=== PATIENT | male | born 1945 | race African-American/Black ===

== ENCOUNTER 2016-04-13 10:18 | Inpatient (IN) | payer MEDICARE, OTHER ==
[2016-04-12 19:00] VITALS: BP 147/95
[~2016-04-13] VITALS: Ht 179.1 cm; Wt 125.8 kg
[~2016-04-13 10:18] MED LIST: AMLO10TA2 PO; CARV6.252 PO; FURO40TA4 PO; GLIM4TAB2 PO; INSU100I17 SQ; INSU100V8 SQ; METF500T4 PO; OXYC10TA PO; POTA15TA2 PO; PROAIR HFA8.5 GM IH; TRAM50TA PO
[2016-04-13] MEDS ORDERED: NICOTINE 21MG PATCH. TD ONE (10:45)
[2016-04-13 11:06] LABS: BASO # 0.1 x10^3/uL (0.0-0.2); BASO % 1 % (0-3); EOS % 1 % (0-3); HEMATOCRIT 41.3 % (39.0-53.0); LYMPH # 2.1 x10^3/uL (1.0-4.8); LYMPH % 29 % (24-48); MEAN CORPUSCULAR HEMOGLOBIN 25 pg (25-35); MEAN CORPUSCULAR HGB CONC 32 g/dL (31-37); MEAN CORPUSCULAR VOLUME 79 fL (79-100); MONO % 10 % (0-9); NEUT % 59 % (31-73); PLATELET COUNT 222 x10^3/uL (140-400); RED BLOOD COUNT 5.25 x10^6/uL (4.30-5.70); RED CELL DISTRIBUTION WIDTH 14.9 % (11.5-14.5); WHITE BLOOD COUNT 7.1 x10^3/uL (4.0-11.0)
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
[2016-04-13 11:21] LABS: CALCIUM 8.5 mg/dL (8.5-10.1); CREATININE 0.8 mg/dL (0.7-1.3); GFR 116.3; POTASSIUM 4.4 mmol/L (3.5-5.1)
[2016-04-13 11:26] LABS: ALBUMIN 3.5 g/dL (3.4-5.0); ALBUMIN/GLOBULIN RATIO 0.9 (1.0-1.7); TOTAL BILIRUBIN 0.4 mg/dL (0.2-1.0); TOTAL PROTEIN 7.2 g/dL (6.4-8.2)
--- NOTE | 2016-04-13 11:29 | EKG ---
[facility] [address] [place] [address] Test Date: 2016-04-13 Test Time: 10:20:33 Pat Name: YUNG LEDESMA Department: Room: Gender: M District Associate Judge: : 1945 Requested By: ERICA ALVAREZ Order Number: [id number] Reading MD: Chandrika Amaral Measurements Intervals [place] Rate: 62 P: 48 SD: 166 QRS: 8 QRSD: 78 T: 7 QT: 378 QTc: 386 Interpretive Statements SINUS RHYTHM VENTRICULAR PREMATURE COMPLEX(ES) T ABNORMALITY IN ANTEROLATERAL LEADS ABNORMAL ECG RI6.01 No previous ECG available for comparison Electronically Signed On 04-17-2016 15:22:00 INTEGRATION ENGINEER by Chandrika Amaral
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
[2016-04-13] MEDS ORDERED: ACETAMINOPHEN 325 MG TABLET. PO PRN (12:00)
[2016-04-13] MEDS ORDERED: FUROSEMIDE 40 MG/4 ML VIAL IVP ONE ×2 (12:00→15:00)
[2016-04-13] MEDS ORDERED: DEXTROSE 50% 25 GM / 50ML DISP.SYRIN. IV PRN (13:30)
[2016-04-13] MEDS ORDERED: ASPI81TA2 PO (13:54)
[2016-04-13] MEDS ORDERED: ALBUTEROL SULFATE 2.5 MG/3 ML NEBU. NEB PRN (14:15)
--- NOTE | 2016-04-13 15:03 | PDOC2 ---
TERRI BARONE MELT HELPER 04/13/16 1503: CARDIAC CONSULT DATE OF CONSULT Date of Consult DATE: 04/13/16 TIME: 14:43 REASON FOR CONSULT Reason for Consult: CHF REFERRING PHYSICIAN Referring Physician: Dr. Gill SOURCE Source: Chart review, Patient HISTORY OF PRESENT ILLNESS HISTORY OF PRESENT ILLNESS This is a 70 yo male, with a history of CHF, and CAD s/p PCI/stenting, HTN, and HLP, who presented with complaints of shortness of breath. Patient is somewhat of a poor historian. Patient reports SOA has been ongoing for the last couple of years but has been significantly worse the last couple of days. Reports ongoing orthopnea over the last couple of weeks. Denies LE edema, CP, palpitations, dizziness, diaphoresis, or n/v. No recent illness or fevers. Patient reports having AR and undergoing cardiac cath approximately 8 years ago at (he thinks). Patient does reports having "stents" placed in his heart at that time. No recent cardiac workup or cardiology followup, although he has been to see one as outpatient "awhile ago." Reports compliance with medications. PAST MEDICAL HISTORY Cardiovascular: CAD (s/p PCI/stenting), CHF, HTN, AR, Hyperlipidemia Pulmonary: Asthma, Other (DEMAR with CPAP- does not use) CENTRAL NERVOUS SYSTEM: CVA, Periperal neuropathy GI: No pertinent hx Heme/Onc: No pertinent hx Hepatobiliary: No pertinent hx Psych: No pertinent hx Musculoskeletal: Osteoarthritis Rheumatologic: No pertinent hx ENT: No pertinent hx Renal/: No pertinent hx Endocrine: Diabetes Dermatology: No pertinent hx PAST SURGICAL HISTORY Past Surgical History: Hernia Repair, Total knee replacement (bilateral) FAMILY HISTORY Family History: Diabetes, Hypertension SOCIAL HISTORY Smoke: Quit (2 days ago) ALCOHOL: occassional Drugs: None Lives: Alone CURRENT MEDICATIONS CURRENT MEDICATIONS Current Medications Medications (Trade) Dose Ordered Sig/Xuan Route PRN Reason Start Time Stop Time Status Last Admin Dose Admin Nicotine (Nicoderm Cq 21mg) 1 patch 1X ONCE TD 04/13/16 10:45 04/13/16 10:48 DC 04/13/16 11:02 Furosemide (Lasix) 40 mg 1X ONCE IVP 04/13/16 12:00 04/13/16 12:01 DC 04/13/16 12:23 ALLERGIES ALLERGIES: Coded Allergies: WILLIAM Inhibitors (Verified Allergy, Intermediate, swelling, 04/13/16) ROS Review of System 14 point ROS conducted with pertinent positives noted above in HPI PHYSICAL EXAM General: Alert, Oriented X3, Cooperative, No acute distress HEENT: Atraumatic, Mucous membr. moist/pink Lungs: Clear to auscultation, Normal air movement Heart: Regular rate, Normal S1, Normal S2, Other (2/6 systolic murmur ) Abdomen: Soft, Other (obese ) Extremities: No cyanosis, No edema, Normal pulses Skin: No breakdown, No significant lesion Neuro: Normal speech, Sensation intact Psych/Mental Status: Mental status NL, Mood NL MUSCULOSKELETAL: Osteoarthritic changes both hands VITALS VITALS Vital Signs Date Time Temp Pulse Resp B/P Pulse Ox O2 Delivery O2 Flow Rate FiO2 04/13/16 13:58 Room Air 04/13/16 13:00 61 18 133/76 98 04/13/16 10:20 97.6 97.6 LABS Lab: Laboratory Tests Test 04/13/16 10:57 White Blood Count 7.1x10^3/uL (4.0-11.0) Red Blood Count 5.25x10^6/uL (4.30-5.70) Hemoglobin 13.0g/dL (13.0-17.5) Hematocrit 41.3% (39.0-53.0) Mean Corpuscular Volume 79fL (79-100) Mean Corpuscular Hemoglobin 25pg (25-35) Mean Corpuscular Hemoglobin Concent 32g/dL (31-37) Red Cell Distribution Width 14.9% (11.5-14.5) Platelet Count 222x10^3/uL (140-400) Neutrophils (%) (Auto) 59% (31-73) Lymphocytes (%) (Auto) 29% (24-48) Monocytes (%) (Auto) 10% (0-9) Eosinophils (%) (Auto) 1% (0-3) Basophils (%) (Auto) 1% (0-3) Neutrophils # (Auto) 4.2x10^3uL (1.8-7.7) Lymphocytes # (Auto) 2.1x10^3/uL (1.0-4.8) Monocytes # (Auto) 0.7x10^3/uL (0.0-1.1) Eosinophils # (Auto) 0.1x10^3/uL (0.0-0.7) Basophils # (Auto) 0.1x10^3/uL (0.0-0.2) Sodium Level 142mmol/L (136-145) Potassium Level 4.4mmol/L (3.5-5.1) Chloride Level 107mmol/L (98-107) Carbon Dioxide Level 25mmol/L (21-32) Anion Gap 10 (6-14) Blood Urea Nitrogen 15mg/dL (8-26) Creatinine 0.8mg/dL (0.7-1.3) Estimated GFR (Cockcroft-Gault) 116.3 BUN/Creatinine Ratio 19 (6-20) Glucose Level 96mg/dL (70-99) Calcium Level 8.5mg/dL (8.5-10.1) Total Bilirubin 0.4mg/dL (0.2-1.0) Aspartate Amino Transf (AST/SGOT) 17U/L (15-37) Alanine Aminotransferase (ALT/SGPT) 26U/L (16-63) Alkaline Phosphatase 71U/L (46-116) Troponin I Quantitative < 0.017ng/mL (0.000-0.055) AS-Pgz-D-Type Natriuretic Peptide 505pg/mL (0-124) Total Protein 7.2g/dL (6.4-8.2) Albumin 3.5g/dL (3.4-5.0) Albumin/Globulin Ratio 0.9 (1.0-1.7) ASSESSMENT/PLAN ASSESSMENT/PLAN 1. Acute on chronic heart failure 2. Coronary artery disease 3. Dyspnea 4. Hypertension 5. Hyperlipidemia 6. DEMAR- not compliant with CPAP 7. Diabetes, II Recommendations Check echo to assess LV function Continue secondary prevention Check lipids, TSH Diuresis with monitoring of renal function Obtain cardiac records from Further recommendations pending diagnostics Problems: DYANA LORD MD 04/13/16 4994: CARDIAC CONSULT ALLERGIES ALLERGIES: Coded Allergies: WILLIAM Inhibitors (Verified Allergy, Intermediate, swelling, 04/13/16) ASSESSMENT/PLAN ASSESSMENT/PLAN 62-year-old male presenting to the hospital with progressive dyspnea. On examination he has soft systolic murmur throughout the precordium. He has mild lower extremity edema. Labs reviewed. Echocardiogram demonstrates severe LV systolic dysfunction. We will await records from but he has not had any ischemic evaluation the last 2 years we will plan for coronary angiography likely on April 14. Problems: TERRI BARONE APRN Apr 13, 2016 15:03 DYANA LORD MD Apr 13, 2016 18:24
--- NOTE | 2016-04-13 15:39 | ACF ---
Admission Forms Criteria HEART FAILURE: COMMON COMPLICATIONS Clinical Indications for Inpatient Care (Place 'X' for any and all applicable criteria): Ongoing inpatient care may be indicated for heart failure with ANY ONE of the following (1)(2)(3)(4)(5): [ ]I. Ongoing need for care for primary condition requiring frequent therapy adjustments because of changes in cardiac function (eg, drug dosage changes for drugs that are renally metabolized) [ ]II. New-onset heart failure [ ]III. Heart failure with decreased urine output not responsive to attempts to optimize volume status [ ]IV. Acute cardiac ischemia causing or associated with failure [X]V. Complications of heart failure, including ANY ONE of the following: [ ]a) Pericardial effusion [ ]b) Symptomatic pleural effusion [ ]c) O2 saturation <90% or PO2 < 60 mm Hg (8.0 kPa) on room air or require baseline supplemental O2 [ ]d) Tachypnea [X]e) Dyspnea [ ]f) Syncope [ ]g) Change in mental status [ ]h) Acute renal insufficiency that is severe (reduction of more than 50% in estimated glomerular filtration rate from baseline) or progressive reduction of more than 25% in estimated glomerular filtration rate from baseline, with creatinine continuing to rise) [ ]i) Hemodynamic instability [ ]j) Anasarca [ ]k) Clinically significant metabolic abnormalities due to heart failure (eg, new-onset metabolic acidosis) Extended stay beyond goal length of stay for primary condition may be needed until ALL of the following are present(1)(3): [ ]a) Stable and effective diuretic regimen established (or patient on stable dialysis regimen if in chronic renal failure) [ ]b) Breathing comfortably at rest [ ]c) Saturation of arterial oxygen greater than 90% or at acceptable baseline [ ]d) Pulmonary edema absent or improved [ ]e) Hemodynamic stability [ ]f) Volume status acceptable on oral medication [ ]g) Peripheral or sacral edema absent or improved [ ]h) Renal function stable and manageable at a lower level of care [ ]i) Complications (eg, pleural effusion) resolved or manageable at a lower level of care [ ]j) Patient or caregiver has received written discharge instructions or educational material addressing activity level, diet, discharge medications, follow-up appointment, weight monitoring, and what to do if symptoms worsen The original [employer] [facility] content created by [employer] has been revised. The portions of the content which have been revised are identified through the use of italic text or in bold, and [facility] has neither reviewed nor approved the modified material.All other unmodified content is copyright [facility]. Please see references footnoted in the original [facility] edition 2016 Admission Criteria Met?: Yes JORGE SIMS Apr 13, 2016 15:39
[2016-04-13 15:54] VITALS: BP 150/90
[2016-04-13] MEDS: INSULIN ASPART 300 UNITS/3 ML INSULN.PEN SQ SCH ×2 (17:00→17:31)
[2016-04-13] MEDS: METFORMIN 500 MG TABLET. PO SCH (17:27)
[2016-04-13] MEDS: CARVEDILOL 6.25 MG TABLET PO SCH (17:27)
--- NOTE | 2016-04-13 18:24 | CARD ---
APPROVED REPORT EXAM: Two-dimensional and M-mode echocardiogram with Doppler and color Doppler. Other Information Quality : GoodHR: 62bpm Rhythm : NSR INDICATION ALBARADO RISK FACTORS Obesity Diabetes 2D DIMENSIONS RVDd3.7 (2.9-3.5cm)Left Atrium(2D)5.0 (1.6-4.0cm) IVSd1.3 (0.7-1.1cm)Aortic Root(2D)3.0 (2.0-3.7cm) LVDd6.3 (3.9-5.9cm)LVOT Diameter2.3 (1.8-2.4cm) PWd1.3 (0.7-1.1cm)LVDs4.5 (2.5-4.0cm) FS (%) 27.9 %SV105.3 ml LVEF(%)53.1 (>50%) Aortic Valve AoV Peak Sridhar.164.4cm/sAoV VTI35.4cm AO Peak GR.10.8mmHgLVOT Peak Sridhar.87.9cm/s AO Mean GR.6mmHgAVA (VMAX)2.21cm2 AI P 1/2 [id number] Mitral Valve MV E Ucaczaab716.0cm/sMV E Peak Gr.7mmHg MV DECEL [id number] A Firrvkqj08.0cm/s MV E Mean Gr.2mmHgE/A Ratio3.6 MV A [id number] Pulmonary Valve PV Peak Mzmfkbub91.1cm/s Tricuspid Valve TR P. Wzjhnczo385kj/sTR Peak Gr.24mmHg LEFT VENTRICLE The left ventricle is normal size. There is mild concentric left ventricular hypertrophy. Left ventri isaias systolic function is moderately impaired. The Ejection Fraction is 30-35%. There is global hypoki nesis of the left ventricle. Tissue Doppler imaging reveals moderate left ventricular diastolic dysfu nction. RIGHT VENTRICLE The right ventricle is mildly dilated. There is normal right ventricular wall thickness. The right ve ntricular systolic function is normal. ATRIA The left atrium size is normal. The right atrium size is normal. The interatrial septum is intact wit h no evidence for an atrial septal defect or patent foramen ovale as noted on 2-D or Doppler imaging. AORTIC VALVE The aortic valve is mildly sclerotic with restricted leaflet motion. Doppler and Color Flow revealed mild to moderate aortic regurgitation. There is no significant aortic valvular stenosis. MITRAL VALVE There is no evidence of mitral valve prolapse. There is no mitral valve stenosis. Doppler and Color F low revealed mild to moderate mitral regurgitation. TRICUSPID VALVE Doppler and Color Flow revealed mild tricuspid regurgitation. The pulmonary artery systolic pressure is estimated at 29 mmHg. There is no pulmonary hypertension. GREAT VESSELS The aortic root is normal in size. The ascending aorta is normal in size. The IVC is normal in size a nd collapses >50% with inspiration. PERICARDIAL EFFUSION There is no evidence of significant pericardial effusion. Critical Notification Critical Value: No <Conclusion> Left ventricle systolic function is moderately impaired. The Ejection Fraction is 30-35%. There is global hypokinesis of the left ventricle. Tissue Doppler imaging reveals moderate left ventricular diastolic dysfunction. Doppler and Color Flow revealed mild to moderate aortic regurgitation. Doppler and Color Flow revealed mild to moderate mitral regurgitation.
[2016-04-13] MEDS: INSULIN DETEMIR 300 UNITS/3 ML INSULN.PEN. SQ SCH (20:33)
[2016-04-13 23:00] VITALS: BP 129/78
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
[2016-04-14 03:00] VITALS: BP 145/85
[2016-04-14] MEDS: INSULIN ASPART 300 UNITS/3 ML INSULN.PEN SQ SCH ×7 (07:30→17:27)
[2016-04-14 07:58] VITALS: BP 136/91
[2016-04-14] MEDS: ASPIRIN 81 MG TAB.CHEW PO SCH (08:44)
[2016-04-14] MEDS: GLIMEPIRIDE 2 MG TABLET PO SCH (08:44)
[2016-04-14] MEDS: CARVEDILOL 6.25 MG TABLET PO SCH ×2 (08:46→17:21)
[2016-04-14] MEDS: METFORMIN 500 MG TABLET. PO SCH ×2 (08:48→17:19)
[2016-04-14] MEDS: POTASSIUM CHLORIDE 10 MEQ TABLET.ER. PO SCH (08:49)
[2016-04-14] MEDS: AMLODIPINE BESYLATE 10 MG TABLET PO SCH (08:51)
[2016-04-14] MEDS: NICOTINE 21MG PATCH. TD SCH (08:52)
[2016-04-14] MEDS: TRAMADOL 50 MG TABLET. PO PRN (08:55)
[2016-04-14] MEDS ORDERED: FUROSEMIDE 40 MG TABLET PO SCH (09:00)
--- NOTE | 2016-04-14 09:34 | PDOC ---
PROGRESS NOTES Chief Complaint Chief Complaint 1. Acute on chronic systolic and diastolic heart failure 2. SOA, [place] 3. Chronic Obstructive Pulmonary Disease 4. Hypertension 5. DM2 History of Present Illness History of Present Illness Patient awake, alert, and oriented when seen this morning for AM evaluation. Pt wants to know whether he can eat or not after his procedure. Pt states that he is still SOB with some chest congestion. Pt also states the he has been having some sinus pressure with headache. All other questions and concerns addressed and answered. Vitals Vitals Vital Signs Date Time Temp Pulse Resp B/P Pulse Ox O2 Delivery O2 Flow Rate FiO2 04/14/16 08:55 18 94 Room Air 04/14/16 08:51 72 136/91 04/14/16 07:58 99.2 99.2 Physical Exam General: Alert, Oriented X3, Cooperative, No acute distress Heart: Regular rate, Normal S1, Normal S2, Other (2/6 systolic murmur ) Lungs: Clear Abdomen: Soft, No tenderness, Other (obese ) Extremities: No clubbing, No cyanosis, Normal pulses, Other (mild LE bilateral edema) Skin: No rashes, No breakdown, No significant lesion Labs LABS Laboratory Tests Test 04/13/16 10:57 04/13/16 17:55 04/13/16 20:27 04/14/16 00:27 White Blood Count 7.1x10^3/uL (4.0-11.0) Red Blood Count 5.25x10^6/uL (4.30-5.70) Hemoglobin 13.0g/dL (13.0-17.5) Hematocrit 41.3% (39.0-53.0) Mean Corpuscular Volume 79fL (79-100) Mean Corpuscular Hemoglobin 25pg (25-35) Mean Corpuscular Hemoglobin Concent 32g/dL (31-37) Red Cell Distribution Width 14.9% (11.5-14.5) Platelet Count 222x10^3/uL (140-400) Neutrophils (%) (Auto) 59% (31-73) Lymphocytes (%) (Auto) 29% (24-48) Monocytes (%) (Auto) 10% (0-9) Eosinophils (%) (Auto) 1% (0-3) Basophils (%) (Auto) 1% (0-3) Neutrophils # (Auto) 4.2x10^3uL (1.8-7.7) Lymphocytes # (Auto) 2.1x10^3/uL (1.0-4.8) Monocytes # (Auto) 0.7x10^3/uL (0.0-1.1) Eosinophils # (Auto) 0.1x10^3/uL (0.0-0.7) Basophils # (Auto) 0.1x10^3/uL (0.0-0.2) Sodium Level 142mmol/L (136-145) Potassium Level 4.4mmol/L (3.5-5.1) Chloride Level 107mmol/L (98-107) Carbon Dioxide Level 25mmol/L (21-32) Anion Gap 10 (6-14) Blood Urea Nitrogen 15mg/dL (8-26) Creatinine 0.8mg/dL (0.7-1.3) Estimated GFR (Cockcroft-Gault) 116.3 BUN/Creatinine Ratio 19 (6-20) Glucose Level 96mg/dL (70-99) Calcium Level 8.5mg/dL (8.5-10.1) Total Bilirubin 0.4mg/dL (0.2-1.0) Aspartate Amino Transf (AST/SGOT) 17U/L (15-37) Alanine Aminotransferase (ALT/SGPT) 26U/L (16-63) Alkaline Phosphatase 71U/L (46-116) Troponin I Quantitative < 0.017ng/mL (0.000-0.055) < 0.017ng/mL (0.000-0.055) < 0.017ng/mL (0.000-0.055) CG-Clh-G-Type Natriuretic Peptide 505pg/mL (0-124) Total Protein 7.2g/dL (6.4-8.2) Albumin 3.5g/dL (3.4-5.0) Albumin/Globulin Ratio 0.9 (1.0-1.7) Glucose (Fingerstick) 87mg/dL (70-99) Triglycerides Level 161mg/dL (0-150) Cholesterol Level 130mg/dL (0-200) LDL Cholesterol, Calculated 55mg/dL (0-100) VLDL Cholesterol, Calculated 32mg/dL (0-40) HDL Cholesterol 43mg/dL (40-60) Cholesterol/HDL Ratio 3.0 Thyroid Stimulating Hormone (TSH) 2.828uIU/mL (0.358-3.74) Test 04/14/16 01:41 04/14/16 07:45 Glucose (Fingerstick) 90mg/dL (70-99) 89mg/dL (70-99) Review of Systems Review of Systems Patient complaint of SOB Patient complaint of weakness Assessment and Plan Assessmemt and Plan Problems Medical Problems: (1) Congestive heart failure Status: Acute Assessment: 1. Acute on chronic systolic and diastolic heart failure 2. SOA, [place] 3. Chronic Obstructive Pulmonary Disease 4. Hypertension 5. DM2 Plan: Continue to monitor the patient per floor protocol Continue to monitor daily labs Daily PTOT evaluation and treatment DW RN Appreciate subspecialty input and evaluation Await results or Coronary Angiography per Cardiology Problems: Comment Review of Relevant I have reviewed the following items millie (where applicable) has been applied. Labs Laboratory Tests Test 04/13/16 10:57 04/13/16 17:55 04/13/16 20:27 04/14/16 00:27 White Blood Count 7.1x10^3/uL (4.0-11.0) Red Blood Count 5.25x10^6/uL (4.30-5.70) Hemoglobin 13.0g/dL (13.0-17.5) Hematocrit 41.3% (39.0-53.0) Mean Corpuscular Volume 79fL (79-100) Mean Corpuscular Hemoglobin 25pg (25-35) Mean Corpuscular Hemoglobin Concent 32g/dL (31-37) Red Cell Distribution Width 14.9% (11.5-14.5) Platelet Count 222x10^3/uL (140-400) Neutrophils (%) (Auto) 59% (31-73) Lymphocytes (%) (Auto) 29% (24-48) Monocytes (%) (Auto) 10% (0-9) Eosinophils (%) (Auto) 1% (0-3) Basophils (%) (Auto) 1% (0-3) Neutrophils # (Auto) 4.2x10^3uL (1.8-7.7) Lymphocytes # (Auto) 2.1x10^3/uL (1.0-4.8) Monocytes # (Auto) 0.7x10^3/uL (0.0-1.1) Eosinophils # (Auto) 0.1x10^3/uL (0.0-0.7) Basophils # (Auto) 0.1x10^3/uL (0.0-0.2) Sodium Level 142mmol/L (136-145) Potassium Level 4.4mmol/L (3.5-5.1) Chloride Level 107mmol/L (98-107) Carbon Dioxide Level 25mmol/L (21-32) Anion Gap 10 (6-14) Blood Urea Nitrogen 15mg/dL (8-26) Creatinine 0.8mg/dL (0.7-1.3) Estimated GFR (Cockcroft-Gault) 116.3 BUN/Creatinine Ratio 19 (6-20) Glucose Level 96mg/dL (70-99) Calcium Level 8.5mg/dL (8.5-10.1) Total Bilirubin 0.4mg/dL (0.2-1.0) Aspartate Amino Transf (AST/SGOT) 17U/L (15-37) Alanine Aminotransferase (ALT/SGPT) 26U/L (16-63) Alkaline Phosphatase 71U/L (46-116) Troponin I Quantitative < 0.017ng/mL (0.000-0.055) < 0.017ng/mL (0.000-0.055) < 0.017ng/mL (0.000-0.055) QE-Okv-V-Type Natriuretic Peptide 505pg/mL (0-124) Total Protein 7.2g/dL (6.4-8.2) Albumin 3.5g/dL (3.4-5.0) Albumin/Globulin Ratio 0.9 (1.0-1.7) Glucose (Fingerstick) 87mg/dL (70-99) Triglycerides Level 161mg/dL (0-150) Cholesterol Level 130mg/dL (0-200) LDL Cholesterol, Calculated 55mg/dL (0-100) VLDL Cholesterol, Calculated 32mg/dL (0-40) HDL Cholesterol 43mg/dL (40-60) Cholesterol/HDL Ratio 3.0 Thyroid Stimulating Hormone (TSH) 2.828uIU/mL (0.358-3.74) Test 04/14/16 01:41 2/9/17 07:45 Glucose (Fingerstick) 90mg/dL (70-99) 89mg/dL (70-99) Laboratory Tests Test 04/13/16 10:57 04/13/16 17:55 04/13/16 20:27 04/14/16 00:27 White Blood Count 7.1x10^3/uL (4.0-11.0) Red Blood Count 5.25x10^6/uL (4.30-5.70) Hemoglobin 13.0g/dL (13.0-17.5) Hematocrit 41.3% (39.0-53.0) Mean Corpuscular Volume 79fL (79-100) Mean Corpuscular Hemoglobin 25pg (25-35) Mean Corpuscular Hemoglobin Concent 32g/dL (31-37) Red Cell Distribution Width 14.9% (11.5-14.5) Platelet Count 222x10^3/uL (140-400) Neutrophils (%) (Auto) 59% (31-73) Lymphocytes (%) (Auto) 29% (24-48) Monocytes (%) (Auto) 10% (0-9) Eosinophils (%) (Auto) 1% (0-3) Basophils (%) (Auto) 1% (0-3) Neutrophils # (Auto) 4.2x10^3uL (1.8-7.7) Lymphocytes # (Auto) 2.1x10^3/uL (1.0-4.8) Monocytes # (Auto) 0.7x10^3/uL (0.0-1.1) Eosinophils # (Auto) 0.1x10^3/uL (0.0-0.7) Basophils # (Auto) 0.1x10^3/uL (0.0-0.2) Sodium Level 142mmol/L (136-145) Potassium Level 4.4mmol/L (3.5-5.1) Chloride Level 107mmol/L (98-107) Carbon Dioxide Level 25mmol/L (21-32) Anion Gap 10 (6-14) Blood Urea Nitrogen 15mg/dL (8-26) Creatinine 0.8mg/dL (0.7-1.3) Estimated GFR (Cockcroft-Gault) 116.3 BUN/Creatinine Ratio 19 (6-20) Glucose Level 96mg/dL (70-99) Calcium Level 8.5mg/dL (8.5-10.1) Total Bilirubin 0.4mg/dL (0.2-1.0) Aspartate Amino Transf (AST/SGOT) 17U/L (15-37) Alanine Aminotransferase (ALT/SGPT) 26U/L (16-63) Alkaline Phosphatase 71U/L (46-116) Troponin I Quantitative < 0.017ng/mL (0.000-0.055) < 0.017ng/mL (0.000-0.055) < 0.017ng/mL (0.000-0.055) RO-Crq-N-Type Natriuretic Peptide 505pg/mL (0-124) Total Protein 7.2g/dL (6.4-8.2) Albumin 3.5g/dL (3.4-5.0) Albumin/Globulin Ratio 0.9 (1.0-1.7) Glucose (Fingerstick) 87mg/dL (70-99) Triglycerides Level 161mg/dL (0-150) Cholesterol Level 130mg/dL (0-200) LDL Cholesterol, Calculated 55mg/dL (0-100) VLDL Cholesterol, Calculated 32mg/dL (0-40) HDL Cholesterol 43mg/dL (40-60) Cholesterol/HDL Ratio 3.0 Thyroid Stimulating Hormone (TSH) 2.828uIU/mL (0.358-3.74) Test 04/14/16 01:41 04/14/16 07:45 Glucose (Fingerstick) 90mg/dL (70-99) 89mg/dL (70-99) Medications Current Medications Nicotine (Nicoderm Cq 21mg) 1 patch 1X ONCE TD Last administered on 04/13/16 11:02; Start 04/13/16 at 10:45; Stop 04/13/16 at 10:48; Status DC Furosemide (Lasix) 40 mg 1X ONCE IVP Last administered on 04/13/16 12:23; Start 04/13/16 at 12:00; Stop 04/13/16 at 12:01; Status DC Acetaminophen (Tylenol) 650 mg PRN Q4HRS PRN PO FEVER; Start 04/13/16 at 12:00; Stop 04/14/16 at 11:59 Insulin Aspart (Novolog) 0-7 UNITS TIDWMEALS SQ ; Start 04/13/16 at 17:00 Dextrose 12.5 gm PRN Q15MIN PRN IV SEE COMMENTS; Start 04/13/16 at 13:30 Nicotine (Nicoderm Cq 21mg) 1 patch DAILY TD Last administered on 04/14/16 08: 52; Start 04/14/16 at 09:00 Amlodipine Besylate (Norvasc) 10 mg DAILY PO Last administered on 04/14/16 08: 51; Start 04/14/16 at 09:00 Aspirin (Children'S Aspirin) 81 mg DAILY08 PO Last administered on 04/14/16 08: 44; Start 04/14/16 at 08:00 Carvedilol (Coreg) 6.25 mg BIDWMEALS PO Last administered on 04/14/16 08:46; Start 04/13/16 at 17:00 Furosemide (Lasix) 40 mg DAILY PO Last administered on 04/14/16 08:50; Start at 09:00 Insulin Aspart (Novolog) 10 units TIDBFRMEAL SQ Last administered on 04/13/16 17:31; Start 04/13/16 at 16:30 Metformin HCl (Glucophage) 500 mg BIDWMEALS PO Last administered on 04/14/16 08 :48; Start 04/13/16 at 17:00 Tramadol HCl (Ultram) 50 mg PRN Q6HRS PRN PO PAIN MILD TO MOD Last administered on 04/14/16 08:55; Start 04/13/16 at 14:00 Albuterol Sulfate (Ventolin Neb Soln) 2.5 mg PRN Q4HRS PRN NEB SOA; Start at 14:15 Glimepiride (Amaryl) 4 mg DAILY08 PO Last administered on 04/14/16 08:44; Start 04/14/16 at 08:00 Insulin Detemir (Levemir) 40 units QHS SQ Last administered on 04/13/16 20:33; Start 04/13/16 at 21:00 Potassium Chloride (Klor-Con) 10 meq DAILYWBKFT PO Last administered on 08:49; Start 04/14/16 at 08:00 Furosemide (Lasix) 40 mg 1X ONCE IVP Last administered on 04/13/16t 15:16; Start 04/13/16 at 15:00; Stop 04/13/16 at 15:04; Status DC Active Scripts Active Reported Aspirin 81 Mg Tab.chew 1 Tab PO DAILY Tramadol Hcl 50 Mg Tablet 50 Mg PO PRN Q6HRS PRN Amlodipine Besylate 10 Mg Tablet 10 Mg PO DAILY Metformin Hcl 500 Mg Tablet 500 Mg PO BID Proair Hfa Inhaler (Albuterol Sulfate) 8.5 Gm Hfa.aer.ad 8.5 Gm IH PRN PRN Lantus (Insulin Glargine,Hum.rec.anlog) 100 Unit/1 Ml Vial 40 Unit SQ HS Carvedilol 6.25 Mg Tablet 6.25 Mg PO BID Furosemide 40 Mg Tablet 40 Mg PO DAILY Novolog Flexpen (Insulin Aspart) 100 Unit/1 Ml Insuln.pen 10 Unit SQ TIDBFRMEAL Glimepiride 4 Mg Tablet 4 Mg PO DAILY Klor-Con M15 (Potassium Chloride) 15 Meq Tab.er.prt 15 Meq PO DAILY Vitals/I & O Vital Sign - Last 24 Hours 04/13/16 04/13/16 04/13/16 04/13/16 10:20 11:00 11:30 12:00 Temp 97.6 97.6 Pulse 68 65 61 60 Resp 20 24 16 20 B/P 125/66 126/75 139/78 158/90 Pulse Ox 99 99 99 96 O2 Delivery Room Air Room Air 04/13/16 04/13/16 04/13/16 04/13/16 12:30 13:00 13:58 15:54 Temp 97.5 97.5 Pulse 64 61 69 Resp 16 18 18 B/P 143/76 133/76 150/90 Pulse Ox 97 98 97 O2 Delivery Room Air Room Air Room Air 04/13/16 04/13/16 04/13/16 04/13/16 17:04 17:27 20:00 23:00 Temp 98.3 98.3 Pulse 69 70 Resp 20 B/P 150/90 129/78 Pulse Ox 98 98 O2 Delivery Room Air Room Air 04/14/16 04/14/16 04/14/16 04/14/16 03:00 07:58 08:46 08:51 Temp 98.2 99.2 98.2 99.2 Pulse 69 72 72 72 Resp 18 18 B/P 145/85 136/91 136/91 136/91 Pulse Ox 92 94 O2 Delivery Room Air 04/14/16 08:55 Resp 18 Pulse Ox 94 O2 Delivery Room Air Intake and Output 04/13/16 04/13/16 04/14/16 15:00 23:00 07:00 Intake Total 240 ml 480 ml Balance 240 ml 480 ml DEANNE SIGALA III DO Apr 14, 2016 09:34
[2016-04-14 11:16] VITALS: BP 133/77
[2016-04-14] MEDS ORDERED: REGADENOSON 0.4 MG/5 ML DISP.SYRIN. IV ONE (11:30)
--- NOTE | 2016-04-14 11:30 | PDOC ---
TERRI BARONE CAUSTIC PURIFICATION OPERATOR 04/14/16 1129: CARDIO Progress Notes Date and Time Date of Service 04/14/16 Time of Evaluation 1105 Subjective Subjective: No Chest Pain, No Palpitations, No Dizziness, Other (SOA improved) Vitals Vitals Vital Signs Date Time Temp Pulse Resp B/P Pulse Ox O2 Delivery O2 Flow Rate FiO2 04/14/16 11:16 94.5 68 19 133/77 98 Room Air 94.5 Weight Weight [ ] Input and Output Intake and Output Intake and Output 04/14/16 07:00 Intake Total 720 ml Balance 720 ml Intake Oral 720 ml # Voids 2 Laboratory Labs Laboratory Tests Test 04/13/16 17:55 04/13/16 20:27 04/14/16 00:27 04/14/16 01:41 Troponin I Quantitative < 0.017ng/mL (0.000-0.055) < 0.017ng/mL (0.000-0.055) Glucose (Fingerstick) 87mg/dL (70-99) 90mg/dL (70-99) Triglycerides Level 161mg/dL (0-150) Cholesterol Level 130mg/dL (0-200) LDL Cholesterol, Calculated 55mg/dL (0-100) VLDL Cholesterol, Calculated 32mg/dL (0-40) HDL Cholesterol 43mg/dL (40-60) Cholesterol/HDL Ratio 3.0 Thyroid Stimulating Hormone (TSH) 2.828uIU/mL (0.358-3.74) Test 04/14/16 07:45 04/14/16 11:04 Glucose (Fingerstick) 89mg/dL (70-99) 88mg/dL (70-99) Physical Exam HEENT: Neck Supple W Full Motion Chest: Symmetric LUNGS: Other (diminished bases) Heart: S1S2, RRR Abdomen: Normal Aortic Impulse, Soft N/T Extremities: No Calf Tenderness, Other (trace LE edema ) Neurology: alert, oriented, follow commands Assessment Assessment 1. Acute on chronic combined systolic and diastolic heart failure 2. Coronary artery disease 3. Presumed ischemic cardiomyopathy 4. Dyspnea 5. Hypertension 6. Hyperlipidemia Obtained records from : Most recent echo conducted 10/2004 reveals LVEF 45-50% No cath or MPI reports received Recommendations Given history, dyspnea, global hypokinesis of the LV, will proceed with MPI to evaluate for presence of reversible ischemic. Continue with diuresis. Strict I & O, daily weights- d/w RN Supportive care Optimize medical therapy. Repeat echo in 3 months to assess need for AICD in prevention of SCD DYANA LORD MD 04/14/16 2323: CARDIO Progress Notes Plan Plan Pt. seen and examined. Agree with above DYER HELPER note. No acute events overnight. Pt. reports feeling better. Denies any chest pain No significant changes to exam MPI 2nd half pending Await results in a.m. Will follow. TERRI BARONE APRN Apr 14, 2016 11:29 DYANA LORD MD Apr 14, 2016 23:23
[2016-04-14 14:45] VITALS: BP 149/81
[2016-04-14 19:00] VITALS: BP 149/85
[2016-04-14] MEDS: INSULIN DETEMIR 300 UNITS/3 ML INSULN.PEN. SQ SCH (21:08)
[2016-04-14 23:00] VITALS: BP 147/84
[2016-04-15 02:51] VITALS: BP 163/80
[2016-04-15 05:53] LABS: CALCIUM 9.1 mg/dL (8.5-10.1); GFR 89.9; POTASSIUM 4.3 mmol/L (3.5-5.1)
[2016-04-15 07:00] VITALS: BP 144/92
[2016-04-15] MEDS: INSULIN ASPART 300 UNITS/3 ML INSULN.PEN SQ SCH ×6 (08:00→17:00)
[2016-04-15 08:06] LABS: BASO % 0 % (0-3); EOS % 1 % (0-3); LYMPH # 1.7 x10^3/uL (1.0-4.8); LYMPH % 27 % (24-48); MEAN CORPUSCULAR HEMOGLOBIN 25 pg (25-35); MEAN CORPUSCULAR HGB CONC 31 g/dL (31-37); MEAN CORPUSCULAR VOLUME 80 fL (79-100); MONO % 10 % (0-9); NEUT % 61 % (31-73); PLATELET COUNT 212 x10^3/uL (140-400); RED BLOOD COUNT 5.23 x10^6/uL (4.30-5.70)
[2016-04-15] MEDS: POTASSIUM CHLORIDE 10 MEQ TABLET.ER. PO SCH (08:57)
[2016-04-15] MEDS: ASPIRIN 81 MG TAB.CHEW PO SCH (08:57)
[2016-04-15] MEDS: METFORMIN 500 MG TABLET. PO SCH ×2 (08:57→17:21)
[2016-04-15] MEDS: NICOTINE 21MG PATCH. TD SCH (08:58)
[2016-04-15] MEDS: FUROSEMIDE 40 MG/4 ML VIAL IVP SCH (08:58)
[2016-04-15] MEDS: AMLODIPINE BESYLATE 10 MG TABLET PO SCH (08:58)
[2016-04-15] MEDS: CARVEDILOL 6.25 MG TABLET PO SCH ×2 (08:58→17:22)
[2016-04-15] MEDS: GLIMEPIRIDE 2 MG TABLET PO SCH (08:59)
[2016-04-15 11:00] VITALS: BP 138/80
--- NOTE | 2016-04-15 11:16 | RAD ---
APPROVED REPORT Test Type: Pharmacological Stress Nurse/Tech: CESAR Tam RN Test Indications: SOA Cardiac History: CHF, [place], see EHR Medications: see EHR Medical History: Diabetic, see EHR Resting ECG: SR inverted twave V6 Resting Heart Rate: 63 bpm Resting Blood Pressure: 126/68mmHg Pretest Chest Pain: No chest pain Nurse/Tech Notes Lungs CTA, heart tones WNL Consent: The procedure was explained to the patient in lay terms. Informed consent was witnessed. Mert eout was entered into [employer]. History and Stress Test performed by RT Santiago (R) (N) Pharm. Details Pharmacologic stress testing was performed using 0.4mg per 5ml of regadenoson given intravenously ove r 7-10 seconds. Stress Symptoms No chest pain, reports "sensation" to throat POST EXERCISE Reason for Termination: Infusion complete Max HR: 88 bpm 68% of Maximum Predicted HR: 129 bpm Max Blood Pressure: 137/68mmHg Chest Pain: No. Arrhythmia: Yes. occasional PVC ST Change: Yes. twave inversion V5, V6 Deviation: 0 mm INTERPRETATION Stress EKG Conclusion: Baseline EKG showed sinus rhythm. No ischemic changes at peak stress. No arr hythmias. Imaging Protocol IMAGE PROTOCOL: Stress Tc-99m/rest Tc-99m 2 days Rest: Stress: Viability: Radiopharm.Tc99m DmzzmswcuCp27v Sestamibi Xbye91tQw 41mCi Duration 15min. 15min. Img Date 04/15/2016 04/14/2016 Inj-Img Lzzn79tjf. 60min. Rest Admin Site:IV - Right AntecubitalAdministrator:RT Pari (R)(N) Stress Admin Site: IV - Left HandAdministrator: RT Santiago (R)(N) STRESS DATA End Diast. Vol.274.0mlAv. Heart Rate72.0bpm End Syst. Vol.180.0mlCO Index BSA6.8L/min Myocardial Npux441.0gEject. Ldjsnmlh14.0% Stress Rates Pk. Fill Rate1.37EDV/secLVtime Pk. Fill 106.88msec Pk. Empty Rate2.13ESV/secLVtime Pk. Hkcwe847.57msec 03/08 Pk. Fill1.04EDV/sec Stress Scores Regional WT3.00Summed WT40.00 Regional WM0.00Summed WM21.00 LV Perfusion Scintigraphic images showed diaphragmatic attenuation artifact without any other fixed or reversible defects. Wall Motion Moderate global left ventricular systolic dysfunction with ejection fraction calculated at 33%. LV Perf. Quant 17 Seg. SSS3.00 Stress Defect Extent (% LAD)0.00Rest Defect Extent (% LAD)Rev. Defect Extent (% LAD)0.00 Stress Defect Extent (% LCX) 28.80Rest Defect Extent (% LCX)Rev. Defect Extent (% LCX)0.00 Stress Defect Extent (% RCA)0.00Rest Defect Extent (% RCA)Rev. Defect Extent (% RCA)0.00 Stress Defect Extent (% JOSE RAFAEL)8.30Rest Defect Extent (% JOSE RAFAEL)Rev. Defect Extent (% JOSE RAFAEL)0.00 Conclusion 1. Regadenoson cardioisotope stress test showed diaphragmatic attenuation artifact without any defini te evidence for ischemia or infarct. 2. Moderate global left ventricle systolic dysfunction with ejection fraction calculated at 33%. 3. Low to intermediate risk for cardiac events
[2016-04-15] MEDS ORDERED: GABAPENTIN 300 MG CAPSULE. PO SCH (14:00)
--- NOTE | 2016-04-15 14:35 | PDOC ---
TERRI BARONE ROLL PICKER 04/15/16 1435: CARDIO Progress Notes Date and Time Date of Service 04/15/16 Time of Evaluation 1210 Subjective Subjective: No Chest Pain, No shortness of breath, No Palpitations, No Dizziness, Other (breathing much better) Vitals Vitals Vital Signs Date Time Temp Pulse Resp B/P Pulse Ox O2 Delivery O2 Flow Rate FiO2 04/15/16 11:00 97.6 73 18 138/80 99 Room Air 97.6 Weight Weight [ ] Input and Output Intake and Output Intake and Output 04/15/16 07:00 Intake Total 2320 ml Balance 2320 ml Intake Oral 2320 ml # Voids 2 # Bowel Movements 1 Laboratory Labs Laboratory Tests Test 04/14/16 14:41 04/14/16 16:57 04/14/16 20:42 04/15/16 04:35 Glucose (Fingerstick) 134mg/dL (70-99) 125mg/dL (70-99) 108mg/dL (70-99) White Blood Count 6.0x10^3/uL (4.0-11.0) Red Blood Count 5.23x10^6/uL (4.30-5.70) Hemoglobin 13.0g/dL (13.0-17.5) Hematocrit 42.0% (39.0-53.0) Mean Corpuscular Volume 80fL (79-100) Mean Corpuscular Hemoglobin 25pg (25-35) Mean Corpuscular Hemoglobin Concent 31g/dL (31-37) Red Cell Distribution Width 15.0% (11.5-14.5) Platelet Count 212x10^3/uL (140-400) Neutrophils (%) (Auto) 61% (31-73) Lymphocytes (%) (Auto) 27% (24-48) Monocytes (%) (Auto) 10% (0-9) Eosinophils (%) (Auto) 1% (0-3) Basophils (%) (Auto) 0% (0-3) Neutrophils # (Auto) 3.7x10^3uL (1.8-7.7) Lymphocytes # (Auto) 1.7x10^3/uL (1.0-4.8) Monocytes # (Auto) 0.6x10^3/uL (0.0-1.1) Eosinophils # (Auto) 0.1x10^3/uL (0.0-0.7) Basophils # (Auto) 0.0x10^3/uL (0.0-0.2) Sodium Level 142mmol/L (136-145) Potassium Level 4.3mmol/L (3.5-5.1) Chloride Level 106mmol/L (98-107) Carbon Dioxide Level 22mmol/L (21-32) Anion Gap 14 (6-14) Blood Urea Nitrogen 17mg/dL (8-26) Creatinine 1.0mg/dL (0.7-1.3) Estimated GFR (Cockcroft-Gault) 89.9 Glucose Level 107mg/dL (70-99) Calcium Level 9.1mg/dL (8.5-10.1) Test 04/15/16 08:31 04/15/16 11:35 Glucose (Fingerstick) 114mg/dL (70-99) 102mg/dL (70-99) Physical Exam HEENT: Neck Supple W Full Motion Chest: Symmetric LUNGS: Other (diminished bases ) Heart: S1S2, RRR Abdomen: Normal Aortic Impulse, Soft N/T Extremities: No Calf Tenderness, Other (1+ bilateral LE edema ) Neurology: alert, oriented, follow commands Assessment Assessment 1. Acute on chronic combined systolic and diastolic heart failure 2. Coronary artery disease 3. Presumed ischemic cardiomyopathy 4. Dyspnea 5. Hypertension 6. Hyperlipidemia Recommendations MPI, 2nd part, underway today Continue with diuresis. No output recorded again today- d/w RN. Will likely covert Lasix to oral in am Supportive care DYANA LORD MD 04/15/164: CARDIO Progress Notes Plan Plan Patient seen and examined. Agree with above nurse practitioner note. No acute events overnight. On examination he has improved lower extremity edema. Lungs are clear. Stress testing is unremarkable. He does have nonischemic myopathy with an ejection fraction of 33%. Continue supportive care. Medical therapy and follow up on an outpatient basis to determine if he would be a candidate for ICD after adequate medical therapy. TERRI BARONE APRN Apr 15, 2016 14:35 DYANA LORD MD Apr 15, 2016 19:54
[2016-04-15 15:00] VITALS: BP 142/86
[2016-04-15] MEDS: GABAPENTIN 100 MG CAPSULE. PO SCH ×2 (16:18→21:39)
[2016-04-15 19:00] VITALS: BP 129/73
[2016-04-15] MEDS: TRAMADOL 50 MG TABLET. PO PRN (21:40)
[2016-04-15] MEDS: INSULIN DETEMIR 300 UNITS/3 ML INSULN.PEN. SQ SCH (21:45)
[2016-04-15 23:00] VITALS: BP 132/69
[2016-04-16 03:00] VITALS: BP 138/71
[2016-04-16 08:23] LABS: BASO % 0 % (0-3); EOS % 2 % (0-3); HEMATOCRIT 42.8 % (39.0-53.0); HEMOGLOBIN 13.3 g/dL (13.0-17.5); LYMPH # 1.7 x10^3/uL (1.0-4.8); LYMPH % 32 % (24-48); MEAN CORPUSCULAR HEMOGLOBIN 25 pg (25-35); MEAN CORPUSCULAR HGB CONC 31 g/dL (31-37); MEAN CORPUSCULAR VOLUME 81 fL (79-100); MONO % 11 % (0-9); NEUT % 55 % (31-73); PLATELET COUNT 204 x10^3/uL (140-400); RED BLOOD COUNT 5.31 x10^6/uL (4.30-5.70); RED CELL DISTRIBUTION WIDTH 14.8 % (11.5-14.5); WHITE BLOOD COUNT 5.2 x10^3/uL (4.0-11.0)
[2016-04-16 08:34] LABS: CALCIUM 8.8 mg/dL (8.5-10.1); GFR 89.9; POTASSIUM 4.3 mmol/L (3.5-5.1)
[2016-04-16] MEDS: NICOTINE 21MG PATCH. TD SCH (08:55)
[2016-04-16] MEDS: METFORMIN 500 MG TABLET. PO SCH (08:56)
[2016-04-16] MEDS: GABAPENTIN 100 MG CAPSULE. PO SCH (08:56)
[2016-04-16] MEDS: CARVEDILOL 6.25 MG TABLET PO SCH (08:57)
[2016-04-16] MEDS: GLIMEPIRIDE 2 MG TABLET PO SCH (08:57)
[2016-04-16] MEDS: ASPIRIN 81 MG TAB.CHEW PO SCH (08:58)
[2016-04-16] MEDS: POTASSIUM CHLORIDE 10 MEQ TABLET.ER. PO SCH (08:58)
[2016-04-16] MEDS: AMLODIPINE BESYLATE 10 MG TABLET PO SCH (08:58)
[2016-04-16] MEDS: FUROSEMIDE 40 MG/4 ML VIAL IVP SCH ×2 (08:59→09:00)
[2016-04-16 09:02] VITALS: BP 143/79
[2016-04-16] MEDS: INSULIN ASPART 300 UNITS/3 ML INSULN.PEN SQ SCH ×2 (09:09→09:10)
[2016-04-16] MEDS ORDERED: FUROSEMIDE 40 MG TABLET PO SCH (10:20)
[2016-04-16] MEDS: TRAMADOL 50 MG TABLET. PO PRN (11:08)
--- NOTE | 2016-04-16 11:24 | PDOC ---
PROGRESS NOTES Chief Complaint Chief Complaint 1. Acute on chronic systolic and diastolic heart failure 2. SOA, [place] 3. Chronic Obstructive Pulmonary Disease 4. Hypertension 5. DM2 History of Present Illness History of Present Illness Pt doing well this AM on arrival to his room. No complaints of Chest pain today or palpations. Pt asking about possible discharge today. ONESIMO RN- Pt switched to PO Lasix this AM. Tolerated well and has no new issues Vitals Vitals Vital Signs Date Time Temp Pulse Resp B/P Pulse Ox O2 Delivery O2 Flow Rate FiO2 04/16/16 11:08 97 Room Air 04/16/16 09:02 98.0 70 22 143/79 98.0 Physical Exam General: Alert, Oriented X3, Cooperative, No acute distress Heart: Regular rate, Normal S1, Normal S2, No murmurs, Other (2/6 systolic murmur ) Lungs: Clear, Other (no wheezes or crackles) Abdomen: Soft, No tenderness, Other (obese ) Extremities: No clubbing, No cyanosis, Normal pulses, Other (mild LE bilateral edema) Skin: No rashes, No breakdown, No significant lesion Labs LABS Laboratory Tests Test 04/15/16 11:35 04/15/16 17:08 04/15/16 21:23 04/16/16 07:49 Glucose (Fingerstick) 102mg/dL (70-99) 74mg/dL (70-99) 116mg/dL (70-99) White Blood Count 5.2x10^3/uL (4.0-11.0) Red Blood Count 5.31x10^6/uL (4.30-5.70) Hemoglobin 13.3g/dL (13.0-17.5) Hematocrit 42.8% (39.0-53.0) Mean Corpuscular Volume 81fL (79-100) Mean Corpuscular Hemoglobin 25pg (25-35) Mean Corpuscular Hemoglobin Concent 31g/dL (31-37) Red Cell Distribution Width 14.8% (11.5-14.5) Platelet Count 204x10^3/uL (140-400) Neutrophils (%) (Auto) 55% (31-73) Lymphocytes (%) (Auto) 32% (24-48) Monocytes (%) (Auto) 11% (0-9) Eosinophils (%) (Auto) 2% (0-3) Basophils (%) (Auto) 0% (0-3) Neutrophils # (Auto) 2.8x10^3uL (1.8-7.7) Lymphocytes # (Auto) 1.7x10^3/uL (1.0-4.8) Monocytes # (Auto) 0.6x10^3/uL (0.0-1.1) Eosinophils # (Auto) 0.1x10^3/uL (0.0-0.7) Basophils # (Auto) 0.0x10^3/uL (0.0-0.2) Sodium Level 140mmol/L (136-145) Potassium Level 4.3mmol/L (3.5-5.1) Chloride Level 105mmol/L (98-107) Carbon Dioxide Level 25mmol/L (21-32) Anion Gap 10 (6-14) Blood Urea Nitrogen 14mg/dL (8-26) Creatinine 1.0mg/dL (0.7-1.3) Estimated GFR (Cockcroft-Gault) 89.9 Glucose Level 109mg/dL (70-99) Calcium Level 8.8mg/dL (8.5-10.1) Test 04/16/16 08:54 Glucose (Fingerstick) 192mg/dL (70-99) Review of Systems Review of Systems Complaining of Hunger Complaining of Fatigue All other ROS negative Assessment and Plan Assessmemt and Plan Problems Medical Problems: (1) Congestive heart failure Status: Acute 1. Acute on chronic systolic and diastolic heart failure 2. SOA, [place] 3. Chronic Obstructive Pulmonary Disease 4. Hypertension 5. DM2 Plan: - Switched to PO Lasix this AM - Vitals Stable overnight - Cardio Consulted-appreciate recommendations - Stress unremarkable - Will continue PO Lasix on discharge - F/U with Cardio on Outpatient basis after discharge - Continue regular home medications on discharge - Disposition: OK with discharge if ok with Cardiology Problems: Comment Review of Relevant I have reviewed the following items millie (where applicable) has been applied. Labs Laboratory Tests Test 04/14/16 13:19 04/14/16 14:41 04/14/16 16:57 04/14/16 20:42 Glucose (Fingerstick) 127mg/dL (70-99) 134mg/dL (70-99) 125mg/dL (70-99) 108mg/dL (70-99) Test 04/15/16 04:35 04/15/16 08:31 04/15/16 11:35 04/15/16 17:08 White Blood Count 6.0x10^3/uL (4.0-11.0) Red Blood Count 5.23x10^6/uL (4.30-5.70) Hemoglobin 13.0g/dL (13.0-17.5) Hematocrit 42.0% (39.0-53.0) Mean Corpuscular Volume 80fL (79-100) Mean Corpuscular Hemoglobin 25pg (25-35) Mean Corpuscular Hemoglobin Concent 31g/dL (31-37) Red Cell Distribution Width 15.0% (11.5-14.5) Platelet Count 212x10^3/uL (140-400) Neutrophils (%) (Auto) 61% (31-73) Lymphocytes (%) (Auto) 27% (24-48) Monocytes (%) (Auto) 10% (0-9) Eosinophils (%) (Auto) 1% (0-3) Basophils (%) (Auto) 0% (0-3) Neutrophils # (Auto) 3.7x10^3uL (1.8-7.7) Lymphocytes # (Auto) 1.7x10^3/uL (1.0-4.8) Monocytes # (Auto) 0.6x10^3/uL (0.0-1.1) Eosinophils # (Auto) 0.1x10^3/uL (0.0-0.7) Basophils # (Auto) 0.0x10^3/uL (0.0-0.2) Sodium Level 142mmol/L (136-145) Potassium Level 4.3mmol/L (3.5-5.1) Chloride Level 106mmol/L (98-107) Carbon Dioxide Level 22mmol/L (21-32) Anion Gap 14 (6-14) Blood Urea Nitrogen 17mg/dL (8-26) Creatinine 1.0mg/dL (0.7-1.3) Estimated GFR (Cockcroft-Gault) 89.9 Glucose Level 107mg/dL (70-99) Calcium Level 9.1mg/dL (8.5-10.1) Glucose (Fingerstick) 114mg/dL (70-99) 102mg/dL (70-99) 74mg/dL (70-99) Test 04/15/16 21:23 04/16/16 07:49 04/16/16 08:54 Glucose (Fingerstick) 116mg/dL (70-99) 192mg/dL (70-99) White Blood Count 5.2x10^3/uL (4.0-11.0) Red Blood Count 5.31x10^6/uL (4.30-5.70) Hemoglobin 13.3g/dL (13.0-17.5) Hematocrit 42.8% (39.0-53.0) Mean Corpuscular Volume 81fL (79-100) Mean Corpuscular Hemoglobin 25pg (25-35) Mean Corpuscular Hemoglobin Concent 31g/dL (31-37) Red Cell Distribution Width 14.8% (11.5-14.5) Platelet Count 204x10^3/uL (140-400) Neutrophils (%) (Auto) 55% (31-73) Lymphocytes (%) (Auto) 32% (24-48) Monocytes (%) (Auto) 11% (0-9) Eosinophils (%) (Auto) 2% (0-3) Basophils (%) (Auto) 0% (0-3) Neutrophils # (Auto) 2.8x10^3uL (1.8-7.7) Lymphocytes # (Auto) 1.7x10^3/uL (1.0-4.8) Monocytes # (Auto) 0.6x10^3/uL (0.0-1.1) Eosinophils # (Auto) 0.1x10^3/uL (0.0-0.7) Basophils # (Auto) 0.0x10^3/uL (0.0-0.2) Sodium Level 140mmol/L (136-145) Potassium Level 4.3mmol/L (3.5-5.1) Chloride Level 105mmol/L (98-107) Carbon Dioxide Level 25mmol/L (21-32) Anion Gap 10 (6-14) Blood Urea Nitrogen 14mg/dL (8-26) Creatinine 1.0mg/dL (0.7-1.3) Estimated GFR (Cockcroft-Gault) 89.9 Glucose Level 109mg/dL (70-99) Calcium Level 8.8mg/dL (8.5-10.1) Laboratory Tests Test 04/15/16 11:35 04/15/16 17:08 04/15/16 21:23 04/16/16 07:49 Glucose (Fingerstick) 102mg/dL (70-99) 74mg/dL (70-99) 116mg/dL (70-99) White Blood Count 5.2x10^3/uL (4.0-11.0) Red Blood Count 5.31x10^6/uL (4.30-5.70) Hemoglobin 13.3g/dL (13.0-17.5) Hematocrit 42.8% (39.0-53.0) Mean Corpuscular Volume 81fL (79-100) Mean Corpuscular Hemoglobin 25pg (25-35) Mean Corpuscular Hemoglobin Concent 31g/dL (31-37) Red Cell Distribution Width 14.8% (11.5-14.5) Platelet Count 204x10^3/uL (140-400) Neutrophils (%) (Auto) 55% (31-73) Lymphocytes (%) (Auto) 32% (24-48) Monocytes (%) (Auto) 11% (0-9) Eosinophils (%) (Auto) 2% (0-3) Basophils (%) (Auto) 0% (0-3) Neutrophils # (Auto) 2.8x10^3uL (1.8-7.7) Lymphocytes # (Auto) 1.7x10^3/uL (1.0-4.8) Monocytes # (Auto) 0.6x10^3/uL (0.0-1.1) Eosinophils # (Auto) 0.1x10^3/uL (0.0-0.7) Basophils # (Auto) 0.0x10^3/uL (0.0-0.2) Sodium Level 140mmol/L (136-145) Potassium Level 4.3mmol/L (3.5-5.1) Chloride Level 105mmol/L (98-107) Carbon Dioxide Level 25mmol/L (21-32) Anion Gap 10 (6-14) Blood Urea Nitrogen 14mg/dL (8-26) Creatinine 1.0mg/dL (0.7-1.3) Estimated GFR (Cockcroft-Gault) 89.9 Glucose Level 109mg/dL (70-99) Calcium Level 8.8mg/dL (8.5-10.1) Test 04/16/16 08:54 Glucose (Fingerstick) 192mg/dL (70-99) Medications Current Medications Nicotine (Nicoderm Cq 21mg) 1 patch 1X ONCE TD Last administered on 04/13/16 11:02; Start 04/13/16 at 10:45; Stop 04/13/16 at 10:48; Status DC Furosemide (Lasix) 40 mg 1X ONCE IVP Last administered on 04/13/16 12:23; Start 04/13/16 at 12:00; Stop 04/13/16 at 12:01; Status DC Acetaminophen (Tylenol) 650 mg PRN Q4HRS PRN PO FEVER; Start 04/13/16 at 12:00; Stop 04/14/16 at 11:59; Status DC Insulin Aspart (Novolog) 0-7 UNITS TIDWMEALS SQ Last administered on 04/16/16 09:10; Start 04/13/16 at 17:00 Dextrose 12.5 gm PRN Q15MIN PRN IV SEE COMMENTS; Start 04/13/16 at 13:30 Nicotine (Nicoderm Cq 21mg) 1 patch DAILY TD Last administered on 04/16/16 08: 55; Start 04/14/16 at 09:00 Amlodipine Besylate (Norvasc) 10 mg DAILY PO Last administered on 04/16/16 08: 58; Start 04/14/16 at 09:00 Aspirin (Children'S Aspirin) 81 mg DAILY08 PO Last administered on 04/16/16 08 :58; Start 04/14/16 at 08:00 Carvedilol (Coreg) 6.25 mg BIDWMEALS PO Last administered on 04/16/16 08:57; Start 04/13/16 at 17:00 Furosemide (Lasix) 40 mg DAILY PO Last administered on 04/14/16 08:50; Start at 09:00; Stop 04/14/16 at 17:24; Status DC Insulin Aspart (Novolog) 10 units TIDBFRMEAL SQ Last administered on 04/16/16 09:09; Start 04/13/16 at 16:30 Metformin HCl (Glucophage) 500 mg BIDWMEALS PO Last administered on 04/16/16 08:56; Start 04/13/16 at 17:00 Tramadol HCl (Ultram) 50 mg PRN Q6HRS PRN PO PAIN MILD TO MOD Last administered on 04/16/16 11:08; Start 04/13/16 at 14:00 Albuterol Sulfate (Ventolin Neb Soln) 2.5 mg PRN Q4HRS PRN NEB SOA; Start at 14:15 Glimepiride (Amaryl) 4 mg DAILY08 PO Last administered on 04/16/16 08:57; Start 04/14/16 at 08:00 Insulin Detemir (Levemir) 40 units QHS SQ Last administered on 04/15/16 21:45 ; Start 04/13/16 at 21:00 Potassium Chloride (Klor-Con) 10 meq DAILYWBKFT PO Last administered on 08:58; Start 04/14/16 at 08:00 Furosemide (Lasix) 40 mg 1X ONCE IVP Last administered on 04/13/16 15:16; Start 04/13/16 at 15:00; Stop 04/13/16 at 15:04; Status DC Regadenoson (Lexiscan) 0.4 mg 1X ONCE IV Last administered on 04/14/16 13:01; Start 04/14/16 at 11:30; Stop 04/14/16 at 11:31; Status DC Furosemide (Lasix) 40 mg DAILY IVP Last administered on 04/15/16 08:58; Start 04/15/16 at 09:00; Stop 04/16/16 at 09:40; Status DC Gabapentin (Neurontin) 300 mg TID PO ; Start 04/15/16 at 14:00; Stop 04/15/16 at 14:00; Status DC Gabapentin (Neurontin) 200 mg TID PO Last administered on 04/16/16 08:56; Start 04/15/16 at 14:00 Furosemide (Lasix) 40 mg DAILY PO Last administered on 04/16/16t 11:08; Start 04/16/16 at 10:20 Active Scripts Active Reported Aspirin 81 Mg Tab.chew 1 Tab PO DAILY Tramadol Hcl 50 Mg Tablet 50 Mg PO PRN Q6HRS PRN Amlodipine Besylate 10 Mg Tablet 10 Mg PO DAILY Metformin Hcl 500 Mg Tablet 500 Mg PO BID Proair Hfa Inhaler (Albuterol Sulfate) 8.5 Gm Hfa.aer.ad 8.5 Gm IH PRN PRN Lantus (Insulin Glargine,Hum.rec.anlog) 100 Unit/1 Ml Vial 40 Unit SQ HS Carvedilol 6.25 Mg Tablet 6.25 Mg PO BID Furosemide 40 Mg Tablet 40 Mg PO DAILY Novolog Flexpen (Insulin Aspart) 100 Unit/1 Ml Insuln.pen 10 Unit SQ TIDBFRMEAL Glimepiride 4 Mg Tablet 4 Mg PO DAILY Klor-Con M15 (Potassium Chloride) 15 Meq Tab.er.prt 15 Meq PO DAILY Vitals/I & O Vital Sign - Last 24 Hours 04/15/16 04/15/16 04/15/16 04/15/16 15:00 17:22 19:00 20:05 Temp 97.5 98.2 97.5 98.2 Pulse 71 67 71 Resp 18 20 B/P 142/86 140/84 129/73 Pulse Ox 96 92 O2 Delivery Room Air Room Air Room Air 04/15/16 04/15/16 04/16/16 04/16/16 21:40 23:00 03:00 08:00 Temp 97.7 98.3 97.7 98.3 Pulse 71 70 Resp 20 20 20 B/P 132/69 138/71 Pulse Ox 100 94 O2 Delivery Room Air Room Air Room Air Room Air 04/16/16 04/16/16 04/16/16 04/16/16 08:57 08:58 09:02 11:08 Temp 98.0 98.0 Pulse 70 70 70 Resp 22 B/P 143/79 143/79 143/79 Pulse Ox 97 97 O2 Delivery Room Air Intake and Output 04/15/16 04/15/16 04/16/16 15:00 23:00 07:00 Intake Total 600 ml 1200 ml 800 ml Output Total 650 ml Balance 600 ml 550 ml 800 ml CASTLE,NIAL K III DO Apr 16, 2016 11:24
== END 2016-04-16 11:27 | disposition home or self-care (01) | DRG 293 ==
LOC: ER 10:18 → 5 SOUTH 12:10
PROVIDERS: ADMIT Internal Medicine; ATTEND Internal Medicine
DX: I50.43 Acute on chronic combined systolic (congestive) and diastolic (congestive) heart failure (principal); I11.0 Hypertensive heart disease with heart failure; J44.9 Chronic obstructive pulmonary disease, unspecified; I25.2 Old myocardial infarction; Z82.49 Family history of ischemic heart disease and other diseases of the circulatory system; M19.90 Unspecified osteoarthritis, unspecified site; E11.42 Type 2 diabetes mellitus with diabetic polyneuropathy; E78.5 Hyperlipidemia, unspecified; G47.33 Obstructive sleep apnea (adult) (pediatric); I25.10 Atherosclerotic heart disease of native coronary artery without angina pectoris; I25.5 Ischemic cardiomyopathy; J45.909 Unspecified asthma, uncomplicated; Z83.3 Family history of diabetes mellitus; Z96.653 Presence of artificial knee joint, bilateral; Z88.8 Allergy status to other drugs, medicaments and biological substances; Z98.61 Coronary angioplasty status; Z86.73 Personal history of transient ischemic attack (TIA), and cerebral infarction without residual deficits; Z91.19 Patient's noncompliance with other medical treatment and regimen
CPT/HCPCS: 36415; 71010; 78452; 80048; 80053; 80061; 82947; 83880; 84443; 84484; 85027; 93005; 93017; 93306; 94250; 94760; 96374; 96375; 96376; A9500; J1815; J1940; J2785; 99285-25

== ENCOUNTER 2019-09-10 12:11 | Emergency (ER) | payer MEDICARE, OTHER ==
[~2019-09-10] VITALS: Ht 175.3 cm; Wt 122.0 kg
[~2019-09-10 12:11] MED LIST changes: +ALBU2.5V8 IH; -AMLO10TA2 PO; +AMLO10TA8 PO; +ASPI-630 PO; +CARV6.2511 PO; -CARV6.252 PO; -GLIM4TAB2 PO; +GLIM4TAB8 PO; +METF500T16 PO; -METF500T4 PO; -PROAIR HFA8.5 GM IH
[2019-09-10 12:29] VITALS: BP 130/61
--- NOTE | 2019-09-10 12:50 | PHYS DOC ---
Past Medical History Past Medical History: CHF, COPD, Diabetes-Type II, Hypertension, [place], Other Past Surgical History: Other Additional Past Surgical Histo: abd surgery from [facility], hernia repair Smoking Status: Current Some Day Smoker Alcohol Use: Rarely Drug Use: None General Adult EDM: Chief Complaint: SHOULDER INJURY HPI: HPI: Patient is a 73 year old male who presents with right shoulder pain off and on for years. He denies injury. He states it is aching and throbbing and is worse with movement. He states there is stiffness. He states it feels like his knee does. He is asking for an injection. Patient is educated that we do not do injections into joints to help with pain and he will need to go to a orthopedic doctor. Patient has full range of motion of the right shoulder but it is painful once the shoulder goes higher than shoulder height. Denies any numbness or tingling, injury, swelling of the joint, fever, chest pain, shortness of breath, headache, dizziness, cough, color change of the extremity, temperature changes extremity. Rates his pain a 7 out of 10. Denies radiation of the pain. Review of Systems: Review of Systems: Constitutional: Denies fever or chills. [] Eyes: Denies change in visual acuity. [] HENT: Denies nasal congestion or sore throat. [] Respiratory: Denies cough or shortness of breath. [] Cardiovascular: Denies chest pain or edema. [] GI: Denies abdominal pain, nausea, vomiting, bloody stools or diarrhea. [] : Denies dysuria. [] Musculoskeletal: Denies back pain. Right shoulder joint pain. [] Integument: Denies rash. [] Neurologic: Denies headache, focal weakness or sensory changes. [] Endocrine: Denies polyuria or polydipsia. [] Lymphatic: Denies swollen glands. [] Psychiatric: Denies depression or anxiety. [] Heart Score: Risk Factors: Risk Factors: DM, Current or recent (<one month) smoker, HTN, HLP, family history of CAD, obesity. Risk Scores: Score 0 - 3: 2.5% MACE over next 6 weeks - Discharge Home Score 4 - 6: 20.3% MACE over next 6 weeks - Admit for Clinical Observation Score 7 - 10: 72.7% MACE over next 6 weeks - Early Invasive Strategies Allergies: Allergies: Allergies Coded Allergies Type Severity Reaction Last Updated Verified WILLIAM Inhibitors Allergy Intermediate swelling 04/13/16 Yes Physical Exam: PE: Constitutional: Well developed, well nourished, no acute distress, non-toxic appearance. [] HENT: Normocephalic, atraumatic, bilateral external ears normal, oropharynx moist, no oral exudates, nose normal. [] Eyes: PERRLA, EOMI, conjunctiva normal, no discharge. [] Neck: Normal range of motion, no tenderness, supple, no stridor. [] Cardiovascular:Heart rate regular rhythm, no murmur [] Lungs & Thorax: Bilateral breath sounds clear to auscultation [] Abdomen: Bowel sounds normal, soft, no tenderness, no masses, no pulsatile masses. [] Skin: Warm, dry, no erythema, no rash. [] Back: No tenderness, no CVA tenderness. [] Extremities: No tenderness, no cyanosis, no clubbing, right shoulder ROM limited but intact, no edema. [] Neurologic: Alert and oriented X 3, normal motor function, normal sensory function, no focal deficits noted. [] Psychologic: Affect normal, judgement normal, mood normal. [] Current Patient Data: Vital Signs: Vital Signs Date Time Temp Pulse Resp B/P (MAP) Pulse Ox O2 Delivery O2 Flow Rate FiO2 09/10/19 12:29 98.7 70 12 130/61 (84) 94 Room Air 98.7 EKG: EKG: [] Radiology/Procedures: Radiology/Procedures: [] Impression: [facility] [address] [place] [address] IMAGING REPORT Signed PATIENT: YUNG LEDESMA ACCOUNT: [id number] : 1945 LOCATION: ER AGE: 73 SEX: M EXAM STATUS: REG ER ORD. PHYSICIAN: FLAKITA KAHN APRN REASON: pain, LROM PROCEDURE: SHOULDER 2+V RIGHT Right shoulder 3 views. HISTORY: Pain, decreased range of motion 3 views were taken of the right shoulder. There is severe arthritis with marked joint space narrowing. There is prominent spurring on the humeral head. There is no fracture or dislocation. IMPRESSION: 1. Osteoarthritis right shoulder. Electronically signed by: Bogdan Mi MD (09/10/2019 1:12 PM) [facility] DICTATED and SIGNED BY: BOGDAN MI MD DATE: 09/10/19 1312 Course & Med Decision Making: Course & Med Decision Making Pertinent Labs and Imaging studies reviewed. (See chart for details) No joint laxity. No joint swelling or redness or heat. Radial pulses strong and present. Skin pink warm and dry. Cap refill less than 3 seconds. Patient can make a full fist and strength is strong in the extremity. No tenderness to the extremity or the shoulder. [] Dragon Disclaimer: Dragon Disclaimer: This electronic medical record was generated, in whole or in part, using a voice recognition dictation system. Departure Departure Impression: Primary Impression: Shoulder pain, right Qualified Codes: M25.511 - Pain in right shoulder; G89.29 - Other chronic pain Disposition: HOME, SELF-CARE Condition: STABLE Referrals: UNKNOWN PCP NAME (PCP) GITA CARRILLO MD Patient Instructions: Osteoarthritis Additional Instructions: Follow up with primary care provider and orthopedic. Take medication as prescribed and do not drive on the pain medication as it will make you sleepy. Scripts Hydrocodone/Apap 5-325 (NORCO 5-325 TABLET) 1 Each Tablet 1 TAB PO PRN Q6HRS PRN for PAIN, #10 TAB 0 Refills Prov: FLAKITA KAHN APRN 09/10/19 Justicifation of Admission Dx: Justifications for Admission: Justification of Admission Dx: N/A FLAKITA KAHN APRN Sep 10, 2019 12:50
--- NOTE | 2019-09-10 13:15 | RAD ---
Right shoulder 3 views. HISTORY: Pain, decreased range of motion 3 views were taken of the right shoulder. There is severe arthritis with marked joint space narrowing. There is prominent spurring on the humeral head. There is no fracture or dislocation. IMPRESSION: 1. Osteoarthritis right shoulder. Electronically signed by: Bogdan Mi MD (09/10/2019 1:12 PM) [facility]
[2019-09-10] MEDS ORDERED: HYDR-3164 PO (13:21)
== END 2019-09-10 13:52 | disposition home or self-care (01) ==
LOC: ER 12:11
DX: G89.29 Other chronic pain (principal); M25.511 Pain in right shoulder; I11.0 Hypertensive heart disease with heart failure; I50.9 Heart failure, unspecified; J44.9 Chronic obstructive pulmonary disease, unspecified; E11.9 Type 2 diabetes mellitus without complications; I25.2 Old myocardial infarction; Z98.890 Other specified postprocedural states; Z87.891 Personal history of nicotine dependence; Z88.8 Allergy status to other drugs, medicaments and biological substances
CPT/HCPCS: 73030; 99283

== ENCOUNTER 2019-10-10 21:59 | Emergency (ER) | payer MEDICARE, OTHER ==
[~2019-10-10] VITALS: Ht 175.3 cm; Wt 125.4 kg
[~2019-10-10 21:59] MED LIST changes: +HYDR-3164 PO
--- NOTE | 2019-10-10 22:53 | PHYS DOC ---
Past Medical History Past Medical History: CHF, COPD, Diabetes-Type II, Hypertension, [place], Other Past Surgical History: Knee Replacement, Other Additional Past Surgical Histo: abd surgery from [facility], hernia repair Smoking Status: Current Some Day Smoker Alcohol Use: Rarely Drug Use: None General Adult EDM: Chief Complaint: GENERALIZED BODY ACHES HPI: HPI: Patient is a 74 year old male who presents with pain in his right shoulder and diffuse arthritis pain for an extended period of time. He reports that he injured himself months ago and has been seeking care through an orthopedic surgeon who is unfortunately had to put off his appointments and procedures secondary to COVID-19. This is frustrating him and he is here today requesting a pain medication refill. Otherwise he denies any other significant complaints including fever, chills, cough, chest pain, shortness of breath, abdominal pain. He describes the pain as achy, worse with movement and keeping him up at night. Is also constant. Does not radiate Review of Systems: Review of Systems: Constitutional: Denies fever or chills. [] Eyes: Denies change in visual acuity. [] HENT: Denies nasal congestion or sore throat. [] Respiratory: Denies cough or shortness of breath. [] Cardiovascular: Denies chest pain or edema. [] GI: Denies abdominal pain, nausea, vomiting, bloody stools or diarrhea. [] : Denies dysuria. [] Musculoskeletal: See HPI [] Integument: Denies rash. [] Neurologic: Denies headache, focal weakness or sensory changes. [] Endocrine: Denies polyuria or polydipsia. [] Lymphatic: Denies swollen glands. [] Psychiatric: Denies depression or anxiety. [] Heart Score: Risk Factors: Risk Factors: DM, Current or recent (<one month) smoker, HTN, HLP, family history of CAD, obesity. Risk Scores: Score 0 - 3: 2.5% MACE over next 6 weeks - Discharge Home Score 4 - 6: 20.3% MACE over next 6 weeks - Admit for Clinical Observation Score 7 - 10: 72.7% MACE over next 6 weeks - Early Invasive Strategies Allergies: Allergies: Allergies Coded Allergies Type Severity Reaction Last Updated Verified WILLIAM Inhibitors Allergy Intermediate swelling 04/13/16 Yes Physical Exam: PE: Constitutional: Well developed, well nourished, no acute distress, non-toxic appearance. [] HENT: Normocephalic, atraumatic, bilateral external ears normal, oropharynx moist, no oral exudates, nose normal. [] Eyes: PERRLA, EOMI, conjunctiva normal, no discharge. [] Neck: Normal range of motion, no tenderness, supple, no stridor. [] Cardiovascular:Heart rate regular rhythm, no murmur [] Lungs & Thorax: Bilateral breath sounds clear to auscultation [] Abdomen: Bowel sounds normal, soft, no tenderness, no masses, no pulsatile masses. [] Skin: Warm, dry, no erythema, no rash. [] Back: No tenderness, no CVA tenderness. [] Extremities: No tenderness, no cyanosis, no clubbing, ROM intact, no edema. Patient with full range of motion of the upper and lower appendicular skeleton, there is no effusion or calor associated with the right shoulder or left shoulder. Patient had pain with extension, and abduction with a range of motion consistent with an intra-articular process such as arthritis. [] [] Current Patient Data: Vital Signs: Vital Signs Date Time Temp Pulse Resp B/P (MAP) Pulse Ox O2 Delivery O2 Flow Rate FiO2 10/10/19 22:16 98.5 73 24 150/77 (101) 99 Room Air 98.5 EKG: EKG: [] Radiology/Procedures: Radiology/Procedures: [] Course & Med Decision Making: Course & Med Decision Making Pertinent Labs and Imaging studies reviewed. (See chart for details) 2350-the patient was seen and examined. After the initial history and physical was performed I decided to go ahead and perform a joint injection into the right shoulder. The patient agreed excepted the risks and benefits. This was done without any difficulty and the patient had immediate pain relief. I discussed reasons to return, treatment plan and need for follow-up. [] Dragon Disclaimer: Dragon Disclaimer: This electronic medical record was generated, in whole or in part, using a voice recognition dictation system. Departure Departure Impression: Primary Impression: Shoulder pain, right Qualified Codes: M25.511 - Pain in right shoulder Additional Impression: OA (osteoarthritis) of shoulder Qualified Codes: M19.011 - Primary osteoarthritis, right shoulder Disposition: HOME, SELF-CARE Referrals: UNKNOWN PCP NAME (PCP) Patient Instructions: Arthritis, Degenerative-Brief, Shoulder Exercises, G eneric, SportsMed Justicifation of Admission Dx: Justifications for Admission: Justification of Admission Dx: N/A Arthrocentesis Indication: Right shoulder arthritis Consent: Consent given by patient. Procedure: The right shoulder was positioned appropriately and the landmarks were identified. Local anesthesia was not used. The area was then prepped and draped in the usual sterile fashion. A needle was then introduced into the joint space no joint fluid was aspirated, however 80 mg of Depo-Medrol and 5 mL of 1% lidocaine were instilled intra-articularly. A sterile dressing was then applied to the site. The patient tolerated the procedure well with immediate pain relief. Complications: none. [] CHRIS INFANTE MD Oct 10, 2019 22:53
[2019-10-10] MEDS ORDERED: LIDOCAINE 1% PF 5 ML VIAL. INJ ONE (23:00)
[2019-10-10] MEDS ORDERED: TRIAMCINOLONE ACETONIDE 40 MG/ML VIAL. INT ART ONE (23:00)
[2019-10-10] MEDS ORDERED: methylPREDNISolone ACETATE 80 MG/ML VIAL. INT ART ONE (23:15)
[2019-10-10] MEDS ORDERED: LIDOCAINE 1% PF 2 ML VIAL. INJ ONE (23:15)
[2019-10-10] MEDS ORDERED: methylPREDNISolone ACETATE 80 MG/ML VIAL. IM ONE (23:15)
[2019-10-10 23:23] VITALS: BP 162/76
== END 2019-10-10 23:54 | disposition home or self-care (01) ==
LOC: ER 21:59
DX: M19.011 Primary osteoarthritis, right shoulder (principal); M25.511 Pain in right shoulder; J44.9 Chronic obstructive pulmonary disease, unspecified; I11.0 Hypertensive heart disease with heart failure; I50.9 Heart failure, unspecified; E11.9 Type 2 diabetes mellitus without complications; I25.2 Old myocardial infarction; F17.200 Nicotine dependence, unspecified, uncomplicated; Z88.8 Allergy status to other drugs, medicaments and biological substances
CPT/HCPCS: 20610; 96372; 99283; J1040; J3490